=== PATIENT | female | born 1975 | race African-American/Black ===

== ENCOUNTER 2021-10-06 22:43 | Emergency (ER) | payer OTHER, SELFPAY ==
--- NOTE | 2021-10-06 22:45 | DI.RAD_ITS ---
Exam(s) XR KNEE LT 4V AP,LAT,RAISA,PAT EXAM: XR KNEE LT 4V AP,LAT,RAISA,PAT CLINICAL HISTORY: Fall, R/O Fracture. TECHNIQUE: 2D digital imaging was performed. COMPARISON: No exams were available for comparison FINDINGS: No evidence of fracture. Small amount of increased joint fluid. No degenerative changes. Bone dens ity normal. No osseous lesions. IMPRESSION: No osseous findings. Small joint effusion. DATA REPOSITORY: RADIATION DOSE DELIVERED:
--- NOTE | 2021-10-06 22:45 | DI.RAD_ITS ---
Exam(s) XR HAND RT LIMITED EXAM: XR HAND RT LIMITED CLINICAL HISTORY: Fall, R/O Foreign body. TECHNIQUE: 2D digital imaging was performed. COMPARISON: No exams were available for comparison FINDINGS: No evidence of fracture nor dislocation. No osseous lesions. No erosions. Small densities are seen between the 2nd and 3rd metacarpal bases on the frontal view. May be calcif ications but correlation with any clinical findings to suggest foreign bodies is recommended. IMPRESSION: DATA REPOSITORY: RADIATION DOSE DELIVERED:
--- NOTE | 2021-10-06 22:45 | DI.RAD_ITS ---
Exam(s) XR ANKLE LT COMPLETE EXAM: XR ANKLE LT COMPLETE CLINICAL HISTORY: Fall, R/O Fracture. TECHNIQUE: 2D digital imaging was performed. COMPARISON: No exams were available for comparison FINDINGS: No evidence of fracture nor widening of the mortise. Talar dome unremarkable. No osseous tarsal coa lition. IMPRESSION: No significant findings. DATA REPOSITORY: RADIATION DOSE DELIVERED:
--- NOTE | 2021-10-06 22:45 | DI.RAD_ITS ---
Exam(s) XR WRIST RT COMPLETE EXAM: XR WRIST RT COMPLETE CLINICAL HISTORY: Fall,. TECHNIQUE: 2D digital imaging was performed. COMPARISON: No exams were available for comparison FINDINGS: There is no evidence of acute fracture nor dislocation. 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 Scapholunate distance is normal. No evidence of significant ulnar variance. Lateral view reveals small superficial foreign bodies along the palmar aspect of the hand. IMPRESSION: No fractures. Superficial foreign bodies on the palmar aspect of the hand noted. DATA REPOSITORY: RADIATION DOSE DELIVERED:
[2021-10-06 22:46] VITALS: BP 149/92; PULSE 66; RESP 18; TEMP 36.6; O2SAT 100
--- NOTE | 2021-10-06 23:00 | ED.GENADUL_ITS ---
Discharge Plan Disposition Patient Disposition: HOME Condition: Stable Discharge Details Clinical Impression: Ankle sprain, Fall (on) (from) other stairs and steps, initial encounter, Foreign body hand Primary Care Provider: Unknown,Unknown ED Provider: Lana Newton Home Meds and New Rx's Prescriptions: No Action Vyvanse 10 mg Capsule 10 mg PO DAILY 0RF Discharge Instructions Instructions: Ankle Sprain (ED) Additional Instructions: Rest, ice, compression, elevation. X-rays show no evidence for fracture or dislocation. You will feel sore for the next few days. Please take Tylenol or Ibuprofen with food every 4-6 hours as needed for pain and swelling. Follow up with primary care provider in 3-5 days. Return to ED sooner if any worsening or concerns. Increase oral fluids. Stand Alone Forms: Work Release Medical Decision Making X-rays ordered. Imaging protocol: XR Left knee. Views: 4 or more views. COMPARISON: CR XR FOOT LT COMPLETE 10/06/2021 23:26 FINDINGS: Bones/joints: Benign appearing patellar tendon enthesophyte. No acute fracture or subluxation. Soft tissues: Benign appearing distal quadriceps enthesophyte. No significant joint effusion. IMPRESSION: No acute bony pathology. Thank you for allowing us to participate in the care of your patient. Dictated and Authenticated by: Shasta Blake MD Imaging protocol: XR Right hand. Views: 1 or 2 views. COMPARISON: No relevant prior studies available. FINDINGS: Bones/joints: Congenital fusion, lunate and trapezoid. No acute fracture or subluxation. Adjacent 1 and 2 mm hazy densities, projecting between the 2nd and 3rd metacarpal bases on the frontal view only. Soft tissues: Unremarkable. IMPRESSION: Adjacent 1 and 2 mm hazy densities, projecting between the 2nd and 3rd metacarpal bases on the frontal view only. Favor these are benign chronic calcifications however please correlate with the location of concern clinically. CR XR HAND RT LIMITED 10/06/2021 23:15 FINDINGS: Bones/joints: Incidental congenital fusion lunate and triquetrum. No acute fracture or subluxation. Soft tissues: Tiny densities palmar soft tissues, 1-2 mm, relatively superficial. IMPRESSION: Small superficial foreign bodies along the palmar aspect of the hand Imaging protocol: XR Left ankle. Views: 3 or more views. COMPARISON: No relevant prior studies available. FINDINGS: Bones/joints: No acute fracture or subluxation. The ankle mortise is intact. Posterior calcaneal spur. Soft tissues: Unremarkable. IMPRESSION: No acute bony pathology. Imaging protocol: XR Left foot. Views: 3 or more views. COMPARISON: CR XR ANKLE LT COMPLETE 10/06/2021 23:22 FINDINGS: Bones/joints: The bones appear mildly demineralized. No acute fracture or subluxation. Soft tissues: Normal. IMPRESSION: No acute bony pathology. Attempted to remove soft tissue foreign body from her right palm, foreign body was palpated underneath the skin and identified on x-ray. Was able to remove 1 piece of what appeared to be a rock. I was unable to remove the second foreign body. Discussed home care and wound care with patient who verbalized understanding. HPI General Mode of arrival: ambulatory . Date/Time Provider Initiated Documentation: 10/06/21 22:47 . Limitations to Documentation: no limitations . Information obtained by: patient and RN notes reviewed . HPI Narrative: 46-year-old female presents to the ER with chief complaint of left ankle and knee pain and right wrist pain status post a mechanical fall while at work at approximately 430 to see patient reports that she was ambulatory after the fall however during the course of the night she is noticed increased pain with twisting motion. No obvious deformity or swelling noted. She does have an abrasion noted to the palm of her right hand with possible foreign body embedded. She did not take any medications prior to arrival and declines any meds at this time. Related Data Home Medications Medication Instructions Recorded Confirmed lisdexamfetamine 10 mg capsule 10 mg PO DAILY 10/06/21 10/06/21 (Vyvanse) Allergies Allergy/AdvReac Type Severity Reaction Status Date / Time ketorolac [From Toradol] AdvReac Mild Hives Unverified 10/06/21 22:50 General Stated Complaint: Orthopedic BESS: 4 Review of Systems All systems reviewed & are unremarkable except as noted in HPI and below ENT Ears, Nose, Mouth, and Throat: Denies neck pain Musculoskeletal Musculoskeletal: Denies back pain, Reports arthralgias and Denies neck pain Integumentary/Breasts Skin/Breast: Reports as per HPI and Reports wounds (Right palm) PFSH All Active Problems (Updated 10/07/21 @ 00:15 by Lana Newton) Ankle sprain (Acute) Fall (on) (from) other stairs and steps, initial encounter (Acute) Foreign body hand (Acute) Social History Smoking/Tobacco Use Status: Never Smoking risk assessment performed?: Yes Drug use: Never Do you feel safe at home: Yes Do you feel safe in your relationship?: Yes Exam Narrative Exam Narrative: General: Well Developed, Awake and Alert, conversant. Skin: Warm and Dry HEENT: Head: No palpable deformities, Normocephalic Eyes: Pupils PERRLA, EOM's intact. No periorbital eccymosis or step off Ears: Canal patent. Tympanic membranes are clear . No price's sign, no hemptympanum. Nose/Face: Atraumatic. Facial bones nontender to palpation and stable with manipulation. Mouth/Throat: No intraoral trauma. Teeth and mandible are intact. Neck: No midline tenderness, no step off, no deformity to palpation of C-spine. Trachea midline. Chest: No surface trauma. Nontender without crepitus or deformity. Lungs clear to ausculatation bilaterally. Heart: RRR, no rubs, murmurs or gallop. Abdomen: No abrasions, ecchymosis, or surface trauma. Nondistended. Nontender to palpation no guarding, rebound, or rigidity. Pelvis: Nontender to palpation and stable to compression. Femoral pulses strong and equal Extremities: Abrasion noted to the right palm, questionable foreign body embedded. Left knee and left ankle pain no obvious deformity noted Peripheral pulses intact and equal. Neuro: ANO x4, GCS 15, cranial nerves II through XII intact. Motor and sensory exam nonfocal. Reflexes are symmetric. Course Vital Signs Vital signs: Respiratory Effort 10/06/21 22:54 Pain Level 7 10/06/21 22:56 Procedures Foreign Body Removal Time Out Performed: no Site: right and hand Description of foreign body: rock Sedation/Analgesia: other (topical let) Technique: manual removal and irrigation Confirmed by:: radiograph Complications: none (Incomplete FB removal) Post-procedure exam: awake, alert Neurovascular: normal distal pulse, normal capillary fill, distal light touch sensation intact and distal motor function normal
[2021-10-06] MEDS: Lidocaine/Epinephri/Tetracaine Topical Gel 3 ML TP (23:07)
--- NOTE | 2021-10-06 23:15 | DI.RAD_ITS ---
Exam(s) XR FOOT LT COMPLETE EXAM: XR FOOT LT COMPLETE CLINICAL HISTORY: Fall, foot pain. TECHNIQUE: 2D digital imaging was performed. COMPARISON: No exams were available for comparison FINDINGS: There is no evidence of fracture nor diastasis of the Lisfranc joint. No osseous lesions nor erosion s. No pes planus. IMPRESSION: No significant radiographic findings DATA REPOSITORY: RADIATION DOSE DELIVERED:
--- NOTE | 2021-10-06 23:44 | DI.VRAD_ITS ---
PROCEDURE INFORMATION: Exam: XR Left Foot Exam date and time: 10/06/2021 23:18 Age: 46 years old Clinical indication: Left; Patient HX: Fall, foot pain. Pain 2nd toe TECHNIQUE: Imaging protocol: XR Left foot. Views: 3 or more views. COMPARISON: CR XR ANKLE LT COMPLETE 10/06/2021 23:22 FINDINGS: Bones/joints: The bones appear mildly demineralized. No acute fracture or subluxation. Soft tissues: Normal. IMPRESSION: No acute bony pathology. Dictated and Authenticated by: Shasta Blake MD. Ordering:LAUREN Schwartz MD
--- NOTE | 2021-10-06 23:45 | DI.VRAD_ITS ---
Addendum created by Shasta Blake MD on 10/06/2021 11:46:11 PM EST: The tiny densities projecting along the palmar aspect of the hand are better seen on images of the wrist and actually appear quite superficial; these could be tiny foreign bodies. Initial report created on 10/06/2021 11:45:02 PM EST: PROCEDURE INFORMATION: Exam: XR Right Hand Exam date and time: 10/06/2021 23:00 Age: 46 years old Clinical indication: Injury or trauma; Work related; Puncture; Hand; Right; Injury date: 10/06/21; Injury details: Fall, R/O fb in palm TECHNIQUE: Imaging protocol: XR Right hand. Views: 1 or 2 views. COMPARISON: No relevant prior studies available. FINDINGS: Bones/joints: Congenital fusion, lunate and trapezoid. No acute fracture or subluxation. Adjacent 1 and 2 mm hazy densities, projecting between the 2nd and 3rd metacarpal bases on the frontal view only. Soft tissues: Unremarkable. IMPRESSION: Adjacent 1 and 2 mm hazy densities, projecting between the 2nd and 3rd metacarpal bases on the frontal view only. Favor these are benign chronic calcifications however please correlate with the location of concern clinically. Dictated and Authenticated by: Shasta Blake MD. Ordering:LAUREN Schwartz MD
--- NOTE | 2021-10-06 23:46 | DI.VRAD_ITS ---
PROCEDURE INFORMATION: Exam: XR Right Wrist Exam date and time: 10/06/2021 23:00 Age: 46 years old Clinical indication: Injury or trauma; Work related; Blunt trauma (contusions or hematomas); Wrist; Right; Injury date: 10/06/21; Injury details: Fall, pain TECHNIQUE: Imaging protocol: XR Right wrist. Views: 3 or more views. COMPARISON: CR XR HAND RT LIMITED 10/06/2021 23:15 FINDINGS: Bones/joints: Incidental congenital fusion lunate and triquetrum. No acute fracture or subluxation. Soft tissues: Tiny densities palmar soft tissues, 1-2 mm, relatively superficial. IMPRESSION: Small superficial foreign bodies along the palmar aspect of the hand Dictated and Authenticated by: Shasta Blake MD. Ordering:LAUREN Schwartz MD
--- NOTE | 2021-10-06 23:46 | DI.VRAD_ITS ---
PROCEDURE INFORMATION: Exam: XR Left Ankle Exam date and time: 10/06/2021 23:00 Age: 46 years old Clinical indication: Injury or trauma; Work related; Blunt trauma; Ankle; Left; Injury date: 10/06/21; Injury details: Fall, pain, R/O FX TECHNIQUE: Imaging protocol: XR Left ankle. Views: 3 or more views. COMPARISON: No relevant prior studies available. FINDINGS: Bones/joints: No acute fracture or subluxation. The ankle mortise is intact. Posterior calcaneal spur. Soft tissues: Unremarkable. IMPRESSION: No acute bony pathology. Dictated and Authenticated by: Shasta Blake MD. Ordering:LAUREN Schwartz MD
--- NOTE | 2021-10-06 23:47 | DI.VRAD_ITS ---
PROCEDURE INFORMATION: Exam: XR Left Knee Exam date and time: 10/06/2021 23:00 Age: 46 years old Clinical indication: Injury or trauma; Work related; Blunt trauma; Knee; Left; Injury date: 10/06/21; Injury details: Fall, pain TECHNIQUE: Imaging protocol: XR Left knee. Views: 4 or more views. COMPARISON: CR XR FOOT LT COMPLETE 10/06/2021 23:26 FINDINGS: Bones/joints: Benign appearing patellar tendon enthesophyte. No acute fracture or subluxation. Soft tissues: Benign appearing distal quadriceps enthesophyte. No significant joint effusion. IMPRESSION: No acute bony pathology. Dictated and Authenticated by: Shasta Blake MD. Ordering:LAUREN Schwartz MD
[2021-10-07] MEDS: Acetaminophen 500 MG TAB 1000 MG PO (00:11)
[2021-10-07 00:50] VITALS: BP 128/78; PULSE 64; RESP 18; O2SAT 100
== END 2021-10-07 00:46 | disposition home or self-care (01) ==
PROVIDERS: Emergency Provider Registered Nurse Emergency
DX: S93.492A Sprain of other ligament of left ankle, initial encounter (principal); S60.511A Abrasion of right hand, initial encounter; M25.562 Pain in left knee; M25.531 Pain in right wrist; M79.672 Pain in left foot; W10.8XXA Fall (on) (from) other stairs and steps, initial encounter; Y99.0 Civilian activity done for income or pay
CPT/HCPCS: 29515; 99284; 73110; 73120; 73564; 73610; 73630; 99283

== ENCOUNTER 2021-10-25 17:53 | Outpatient (CLI) | payer OTHER, SELFPAY ==
--- NOTE | 2021-10-25 11:01 | DI.RAD_ITS ---
Exam(s) XR FOOT LT COMPLETE XR ANKLE LT COMPLETE EXAM: XR ANKLE LT COMPLETE and XR foot LT complete CLINICAL HISTORY: LT ANKLE PAIN M25.572 SLIP AND FALL 1 MO AGO TECHNIQUE: 2D digital imaging was performed of the left ankle. Six images were obtained. AP, later al and oblique views were obtained. COMPARISON: CR,XR XR ANKLE LT COMPLETE from 10/06/2021 CR,XR XR FOOT LT COMPLETE from 10/06/2021 FINDINGS: BONES: No acute or healing fracture is identified. No bony destructive lesion is seen. JOINTS:The ankle mortise is normally aligned. SOFT TISSUE: Normal. IMPRESSION: No acute abnormality. DATA REPOSITORY: RADIATION DOSE DELIVERED:
== END 2021-10-25 18:13 ==
PROVIDERS: Visit Provider Physician Assistant Medical
DX: M25.572 Pain in left ankle and joints of left foot (principal); M79.672 Pain in left foot
CPT/HCPCS: 73610; 73630